=== PATIENT | male | born 1955 | race Caucasian/White ===

== ENCOUNTER → 2017-10-04 | Outpatient (CLI) | payer OTHER ==
[~2017-10-04] MED LIST: ALDACTONE25 MG PO; ALLOPURINOL100 MG PO; CIPRO250 MG PO; COL100 PO; FLA250 PO; LAC PO; LISINOPRIL20 MG PO; LOPRESSOR50 MG PO; METFORMIN HCL500 MG PO; NORCO1 TA2 PO; SIMVASTATIN20 M1 PO
== END | disposition home or self-care (01) ==
LOC: US 09:30
PROC: BV44ZZZ Ultrasonography of Scrotum (ICD-10-PCS; principal; 2017-10-04)
DX: N50.819 Testicular pain, unspecified (principal)

== ENCOUNTER → 2017-12-04 | Outpatient (CLI) | payer OTHER | END | disposition home or self-care (01) | LOC: US 08:06 | PROC: BT4JZZZ Ultrasonography of Kidneys and Bladder (ICD-10-PCS; principal; 2017-12-04) | DX: N18.9 Chronic kidney disease, unspecified (principal) ==